=== PATIENT | female | born 1935 | race Caucasian/White ===

== ENCOUNTER 2022-03-24 08:45 | Emergency (ER) | payer OTHER ==
[2022-03-24 08:58] VITALS: BP 124/72; PULSE 80; RESP 18; TEMP 98.1; BMI 25.0
== END 2022-03-24 11:51 | disposition home or self-care (01) ==
LOC: JER 08:45
DX: K94.23 Gastrostomy malfunction (principal)
CPT/HCPCS: 71045-TC-FY; 99283-25